=== PATIENT | male | born 1985 | race Caucasian/White ===

== ENCOUNTER 2020-05-26 19:08 | Emergency (ER) | payer OTHER ==
[~2020-05-26] VITALS: Ht 188 cm; Wt 74.8 kg
[~2020-05-26 19:08] MED LIST: DOXYCYCLINE 10100 MG PO; NOHOMEMEDICATIONS; VICODIN 5-5001 EACH PO
[2020-05-26 19:13] VITALS: BP 126/73
[2020-05-26] MEDS ORDERED: DOXYCYCLINE 10100 MG PO (19:22)
[2020-05-26] MEDS ORDERED: NORCO 5-325 TA1 EAC2 PO (19:22)
== END 2020-05-26 19:37 | disposition home or self-care (01) ==
LOC: M.ERS 19:08
DX: L03.116 Cellulitis of left lower limb (principal); Z88.5 Allergy status to narcotic agent; Z88.2 Allergy status to sulfonamides; Z88.1 Allergy status to other antibiotic agents; W57.XXXA Bitten or stung by nonvenomous insect and other nonvenomous arthropods, initial encounter; Y93.89 Activity, other specified; Y92.89 Other specified places as the place of occurrence of the external cause; Y99.8 Other external cause status

== ENCOUNTER 2020-06-18 00:34 | Emergency (ER) | payer OTHER ==
[~2020-06-18] VITALS: Ht 188 cm; Wt 68.0 kg
[~2020-06-18 00:34] MED LIST changes: +NORCO 5-325 TA1 EAC2 PO
[2020-06-18 01:17] LABS: ABSOLUTE BASOPHILS 0.1 thou/uL (0.0-0.2); ABSOLUTE EOSINOPHILS 0.3 thou/uL (0.0-0.7); ABSOLUTE LYMPHOCYTES 2.6 thou/uL (0.8-5.3); ABSOLUTE MONOCYTES 0.9 thou/uL (0.0-1.2); ABSOLUTE NEUTROPHILS 5.3 thou/uL (1.6-8.1); BASOPHILS 1.3 %; HEMATOCRIT 45.3 % (42.0-52.0); HEMOGLOBIN 15.3 gm/dL (14.0-18.0); MCH 30.7 pg (26.0-34.0); MCHC 33.8 g/dL (28.0-37.0); MONOCYTES 9.8 %; MPV 7.3 fl. (7.2-11.1); NUCLEATED RBCS 0 /100WBC; PLATELET COUNT* 401 thou/uL (150-400); POLYS 57.9 %; RBC 4.98 mil/uL (4.50-6.00); RDW-CV 13.4 % (10.5-14.5); WBC 9.2 thou/uL (4.0-11.0)
[2020-06-18 01:19] LABS: CALCIUM 9.1 mg/dL (8.5-10.1); CREATININE 1.4 mg/dL (0.6-1.3); POTASSIUM 3.1 mmol/L (3.5-5.1)
[2020-06-18] MEDS ORDERED: HYDROCODON-ACE1 EAC8 PO (01:44)
[2020-06-18] MEDS ORDERED: DOXYCYCLINE 10100 MG PO (01:44)
[2020-06-18] MEDS ORDERED: INDOMETHACIN 2525 MG PO (01:44)
[2020-06-18 02:02] VITALS: BP 148/76
[2020-06-18 02:32] LABS: ESR (SEDRATE) 16 mm/hr (0-15)
== END 2020-06-18 02:18 | disposition home or self-care (01) ==
LOC: M.ERS 00:34
PROVIDERS: Emergency Medicine
DX: L03.116 Cellulitis of left lower limb (principal); F17.210 Nicotine dependence, cigarettes, uncomplicated; Z88.5 Allergy status to narcotic agent; Z88.2 Allergy status to sulfonamides; Z88.1 Allergy status to other antibiotic agents; Z88.8 Allergy status to other drugs, medicaments and biological substances